=== PATIENT | male | born 1990 | race Caucasian/White ===

== ENCOUNTER 2023-07-30 16:15 | Emergency (ER) | payer BC, SELFPAY ==
[2023-07-30 16:24] VITALS: BP 134/92; PULSE 103; RESP 20; TEMP 37.1; O2SAT 100
--- NOTE | 2023-07-30 16:29 | ED.URI ---
HPI - URI/Sore Throat General Chief Complaint: Upper Respiratory Infection Stated Complaint: Fever, Sore Throat, Cough, Lower Back Pain History of Present Illness HPI Narrative: Patient presents with a nonproductive cough worse when he lays down at night number morning. Patient has nasal congestion no fever no shortness of breath no chest pain. Patient is not taking anything [id number] for his symptoms. Patient did due to COVID test at home that were both negative. Related Data Home Medications Medication Instructions Recorded Confirmed No Home Medications 07/30/23 07/30/23 Allergies Allergy/AdvReac Type Severity Reaction Status Date / Time Animal Dander Allergy Mild Unknown Uncoded 07/30/23 16:29 Cat Dander Allergy Mild Unknown Uncoded 07/30/23 16:29 Dog Dander Allergy Mild Unknown Uncoded 07/30/23 16:29 Review of Systems Review of Systems: CONSTITUTIONAL: Denies chills, or sweats. Reports fever and generalized body aches EYES: Denies visual changes, redness, or discharge. ENT: Denies otalgia. Reports nasal congestion runny nose and sore throat CARDIOVASCULAR: Denies chest pain, palpitations, or edema. RESPIRATORY: Denies dyspnea. Reports occasional cough GASTROINTESTINAL: Denies abdominal pain, nausea, vomiting, or diarrhea. GENITOURINARY: Denies dysuria or hematuria. SKIN: Denies rash or itching. MUSCULOSKELETAL: Denies back pain, joint pain, or myalgia. Reports generalized body aches NEUROLOGIC: Denies headache, numbness, or weakness. PSYCHIATRIC: Denies anxiety or depression. PMFSH Comments At time of signature, agree with nursing past medical, surgical, social and family history. There is no relevant family history pertinent to the presenting complaint Exam Narrative: The patient is a well-developed, well-nourished in no acute distress. SKIN: Skin is warm and dry without erythema, swelling or exudate. There is good turgor. No tenting. HEAD: Atraumatic. Normocephalic. No temporal or scalp tenderness. EYES: Moist and bright. Sclera and conjunctivae normal. No discharge. PERRLA. Extraocular motions intact. Gross visual acuity intact. EARS: Pinna is normal shape and contour. Clear external auditory canals. TM pearly carrera with good cone of light, no erythema or suppuration. Bilateral cerumen noted no gross hearing deficit. NOSE: pink, moist mucosa with good air movement. Clear rhinorrhea without nasal flaring. Septum midline. Mouth: moist mucous membranes. THROAT; mild erythema noted to posterior oropharynx with moderate postnasal drainage. Without exudate or ulceration.. Uvula midline. Normal movement of soft palate. NECK: Supple and nontender with full range of motion without discomfort. No meningeal signs. LUNGS: Equal and bilateral breath sounds without wheezes, rales or rhonchi. CHEST: The chest wall is without retractions or use of accessory muscles. HEART: Has a regular rate and rhythm without murmur, gallops, click or rub. ABDOMEN: Soft, nontender with positive active bowel sounds. No rebound tenderness. EXTREMITIES: Without cyanosis, clubbing or edema. Equal 2+ distal pulses and 2 second capillary refill noted. NEUROLOGIC: alert, active, . The patient moves all extremities with normal muscle strength. Normal muscle tone is noted. Normal coordination is noted. NO focal neurological findings noted. Course Course Level of Care: Express Care Visit Vital Signs Vital signs: Vital Signs Temperature 37.1 C 07/30/23 16:24 Pulse Rate 103 H 07/30/23 16:24 Respiratory Rate 20 07/30/23 16:24 Blood Pressure 134/92 H 07/30/23 16:24 Pulse Oximetry 100 07/30/23 16:24 Oxygen Delivery Room Air 07/30/23 16:24 Temperature 37.1 C 07/30/23 16:24 Pulse Rate 103 H 07/30/23 16:24 Respiratory Rate 20 07/30/23 16:24 Blood Pressure 134/92 H 07/30/23 16:24 Pulse Oximetry 100 07/30/23 16:24 Oxygen Delivery Room Air 07/30/23 16:24 Please MATIAS schedule a followup visit
[2023-07-30 16:30] VITALS: BP 134/92; PULSE 103; RESP 20; TEMP 37.1; O2SAT 100
== END 2023-07-30 16:37 | disposition home or self-care (01) ==
PROVIDERS: Emergency Provider Nurse Practitioner Family
DX: J06.9 Acute upper respiratory infection, unspecified (principal)
CPT/HCPCS: 99202; G0463

== ENCOUNTER 2025-05-12 10:56 | Emergency (ER) | payer BC, SELFPAY ==
[2025-05-12 11:03] VITALS: BP 146/86; PULSE 103; RESP 16; TEMP 36.7; O2SAT 100
--- NOTE | 2025-05-12 11:30 | ED.GENADULT ---
HPI - General Adult General Chief complaint: Skin/Abscess/Foreign Body Stated complaint: Insect Bite Source: patient Mode of arrival: ambulatory Limitations: no limitations History of Present Illness HPI narrative: Pt presents for evaluation of skin symptoms. He states that one week ago he noted a pimple to the left buttock. He has since progressed in size and discomfort. He states there is purulent drainage present. He has since developed two similar areas to the right thigh. He denies any fever, chills, nausea, or vomiting. He is not diabetic. He has been taking baths with warm water which seems to help. Related Data Allergies Allergy/AdvReac Type Severity Reaction Status Date / Time Animal Dander Allergy Mild Unknown Uncoded 05/12/25 11:27 Cat Dander Allergy Mild Unknown Uncoded 05/12/25 11:27 Dog Dander Allergy Mild Unknown Uncoded 05/12/25 11:27 Review of Systems Review of Systems: CONSTITUTIONAL: Denies fever, chills, or sweats. EYES: Denies visual changes, redness, or discharge. ENT: Denies rhinorrhea, congestion, sore throat, or otalgia. CARDIOVASCULAR: Denies chest pain, palpitations, or edema. RESPIRATORY: Denies cough or dyspnea. GASTROINTESTINAL: Denies abdominal pain, nausea, vomiting, or diarrhea. GENITOURINARY: Denies dysuria or hematuria. SKIN: Reports swollen skin lesion to the left buttock with thick yellow drainage. Report two swollen lesions to the right thigh MUSCULOSKELETAL:Reports pain in left buttock and right thigh, in areas of skin lesions NEUROLOGIC: Denies headache, numbness, dizziness, or weakness. PSYCHIATRIC: Denies anxiety or depression. [facility] Past Medical History Medical History No pertinent past medical history Surgical History Surgical History No pertinent past surgical history Family History Family History Mother Family history non-contributory Social History Social History Gender identity (if verbalized by the patient): Male Sexual Orientation (if Verbalized by the Patient): Straight or Heterosexual Spiritual care concerns: No Exam Narrative: GENERAL: Well-appearing, well-nourished, and in no acute distress. HEAD: Normocephalic, atraumatic. EYES: PERRLA and EOMI. ENT: Nares clear, no rhinorrhea or epistaxis. Mucous membranes moist. Oropharynx without tonsillar hypertrophy exudate or other lesions. Bilateral TMs pearly larkin nonbulging NECK: Supple. No adenopathy or masses. No carotid bruits or JVD CHEST: Clear to auscultation. No respiratory distress. No wheezes rales or rhonchi HEART: Regular rate and rhythm. No murmur heard. Normal peripheral pulses. ABDOMEN: Soft, nontender, nondistended, normal active bowel sounds. EXTREMITIES: Normal range of motion. No edema. SKIN: Warm, dry, no rash. There is a 2 mm pustule noted to the right thigh. There is a 3 mm raised erythematous area to the posterior aspect of the right thigh with surrounding redness and underlying induration without fluctuance. There is a 7 x 4 cm area of erythema to the left buttock a 2 x 2.5 cm area of central fluctuance with 3 overlying pustules and surrounding induration. NEURO: No focal deficits. Alert and oriented x3. PSYCH: Normal mood and affect. Course Course Emergency Course: This is a 34-year-old male who presented for evaluation of skin lesions. The 2 lesions to the right thigh or indurated without areas of central fluctuance so no drainable fluid collection. I&D was attempted on left buttock. There is only a small amount of sanguinous drainage without any purulence. I did recommend patient go to the hospital to determine their he has a drainable fluid collection with CT imaging. He declined. Wound cultures obtained wound was packed. Will discharge with Bactrim and Keflex. I advised patient of his symptoms worsen he should go to the emergency department. He should stop taking past and switch to showers, washing the area 3 times a day with antibacterial soap and water. He should remove packing tomorrow. Also discharge him with chlorhexidine and [place]. Patient in agreement with plan of care. Level of Care: Express Care Visit Vital Signs Vital signs: Vital Signs Temperature 36.7 C 05/12/25 11:03 Pulse Rate 103 H 05/12/25 11:03 Respiratory Rate 16 05/12/25 11:03 Blood Pressure 146/86 H 05/12/25 11:03 Pulse Oximetry 100 05/12/25 11:03 Oxygen Delivery Room Air 05/12/25 11:03 Temperature 36.7 C 05/12/25 11:03 Pulse Rate 103 H 05/12/25 11:03 Respiratory Rate 16 05/12/25 11:03 Blood Pressure 146/86 H 05/12/25 11:03 Pulse Oximetry 100 05/12/25 11:03 Oxygen Delivery Room Air 05/12/25 11:03 Procedures Abscess I/D buttock: Date of Incision: 05/12/25 Time of Incision: 12:36 Side (if applicable): left Local Anesthetic: lidocaine 1% Amount of anesthesia used (mL): 12 Technique: incised with #11 blade Amount of fluid expressed (mL): 3 Packing used?: plain I&D Results: Blood Medical Decision Making Vital Signs Vital Signs: Vital Signs Temperature 36.7 C 05/12/25 11:03 Pulse Rate 103 H 05/12/25 11:03 Respiratory Rate 16 05/12/25 11:03 Blood Pressure 146/86 H 05/12/25 11:03 Pulse Oximetry 100 05/12/25 11:03 Oxygen Delivery Room Air 05/12/25 11:03 Temperature 36.7 C 05/12/25 11:03 Pulse Rate 103 H 05/12/25 11:03 Respiratory Rate 16 05/12/25 11:03 Blood Pressure 146/86 H 05/12/25 11:03 Pulse Oximetry 100 05/12/25 11:03 Oxygen Delivery Room Air 05/12/25 11:03 Discharge Plan Discharge Clinical Impression: Cellulitis of buttock, Folliculitis Patient Disposition: Home Condition: Stable Instructions: Antibiotic Form, Cellulitis (ED), Folliculitis (ED) Patient Language: Kinyarwanda Prescriptions: New sulfamethoxazole-trimethoprim [Bactrim DS] 800-160 mg tablet 1 tablet PO Q12H Qty: 20 0RF cephalexin 500 mg capsule 500 mg PO Q6H Qty: 40 0RF chlorhexidine gluconate 4 % liquid 1 applic topical DAILY Qty: 473 0RF Rx Instructions: as a single dose Follow-up/Referrals: Anuel Cuello MD [Physician] - Time of Disposition: 12:32
[2025-05-12] MEDS: TETANUS,DIPHTHERIA,AC PERTUSSIS ADULT (0.5 ML) BOOSTRIX IM (12:32)
== END 2025-05-12 12:47 | disposition home or self-care (01) ==
PROVIDERS: Emergency Provider Nurse Practitioner
DX: L02.31 Cutaneous abscess of buttock (principal); L73.9 Follicular disorder, unspecified; Z23 Encounter for immunization
CPT/HCPCS: 10061; 90471; 90715; 99213; G0463; J2003